=== PATIENT | female | born 1965 | race Caucasian/White ===

== ENCOUNTER → 2017-11-08 | Outpatient (CLI) | payer BC ==
--- NOTE | 2017-11-12 09:54 | MM ---
Reason for exam: screening (asymptomatic). Last mammogram was performed 1 year and 5 months ago. History: Patient had first child at age 33. Family history of breast cancer in aunt. Physical Findings: A clinical breast exam by your physician is recommended on an annual basis and results should be correlated with mammographic findings. MG Screening Mammo w CAD Bilateral CC and MLO view(s) were taken. Prior study comparison: June 21, 2016, bilateral MG screening mammo w CAD. The breast tissue is heterogeneously dense. This may lower the sensitivity of mammography. No significant changes when compared with prior studies. ASSESSMENT: Negative, BI-RAD 1 RECOMMENDATION: Routine screening mammogram of both breasts in 1 year.
== END | disposition home or self-care (01) ==
LOC: RADMAMWWP 12:46
PROVIDERS: ATTEND Obstetrics & Gynecology
DX: Z12.31 Encounter for screening mammogram for malignant neoplasm of breast (principal)
CPT/HCPCS: 77067

== ENCOUNTER → 2019-04-17 | Outpatient (CLI) | payer BC ==
--- NOTE | 2019-04-17 16:13 | US ---
EXAMINATION TYPE: US pelvic complete DATE OF EXAM: 04/17/2019 COMPARISON: NONE CLINICAL HISTORY: N92.0 Excessive and frequent menstruation. Heavy periods. TECHNIQUE: Transabdominal (TA). Transabdominal sonographic images of the pelvis were acquired. EXAM MEASUREMENTS: Uterus: 10.5 x 5.2 x 6.8 cm Endometrial Stripe: Not well visualized. Right Ovary: 2.1 x 1.2 x 1.1 cm Left Ovary: Not seen due to bowel gas. 1. Uterus: Anteverted Heterogenous fibroid uterus with the largest fibroid measuring 5.6 x 5.0 x 5 .5 cm and other smaller fibroids suspected. This fibroid appears intramural within the posterior myom etrium. 2. Endometrium: Not will visualized. 3. Right Ovary: wnl 4. Left Ovary: Obscured by bowel gas. 5. Bilateral Adnexa: wnl 6. Posterior cul-de-sac: wnl IMPRESSION: Enlarged fibroid uterus with the largest fibroid discretely seen measuring 5.6 cm. Smalle r uterine leiomyomas are suspected however not well-visualized. Left ovary and endometrium are obscur ed.
== END | disposition home or self-care (01) ==
LOC: RADUSWWP 15:25
PROVIDERS: ATTEND Family Medicine
DX: D25.9 Leiomyoma of uterus, unspecified (principal)
CPT/HCPCS: 76856

== ENCOUNTER → 2019-07-06 | Outpatient (CLI) | payer BC ==
--- NOTE | 2019-07-07 08:01 | US ---
EXAMINATION TYPE: US transvaginal DATE OF EXAM: 07/06/2019 COMPARISON: US dated 04/17/2019 CLINICAL HISTORY: D25.9 Leiomyoma of uterus, unspecified. Uterine fibroids. 2 C-Sections. . TECHNIQUE: Transvaginal (TV). Date of LMP: 06/26/2019 EXAM MEASUREMENTS: Uterus: 10.9 x 7.8 x 6.6 cm Endometrial Stripe: not clearly seen Right Ovary: 3.1 x 1.9 x 1.4 cm Left Ovary: 3.1 x 2.9 x 1.9 cm 1. Uterus: Anteverted. Measures upper limits of normal. Appears heterogeneous. Multiple hypoechoic indistinct areas seen. Largest hypoechoic area seen posteriorly measures: 5.3 x 5.6 x 5.2 cm. Anechoic areas seen in cervix. Largest measures: 0.5 x 0.5 x 0.4 cm. Fluid-appearing anechoic area se en in cervix measurin.9 x 0.5 x 0.5 cm. 2. Endometrium: not clearly seen 3. Right Ovary: Anechoic area seen measurin.1 x 1.0 x 0.7 cm. 4. Left Ovary: Mixed area seen measurin.7 x 1.8 x 1.5 cm. Mixed area with hyperechoic components seen measurin.3 x 1.5 x 1.2 cm. 5. Bilateral Adnexa: appear wnl 6. Posterior cul-de-sac: appears wnl IMPRESSION: 1. The uterus is enlarged with multiple probable leiomyomas. The largest appears stable in size from 04/17/2019 measuring up to 5.6 cm, however these markedly obscure the endometrium and endometrial thic kness cannot be measured. Pelvic MRI could be utilized to further assess the endometrium. 2. Multiple complex left ovarian lesion, likely hemorrhagic follicles versus endometrioma on the left .
== END | disposition home or self-care (01) ==
LOC: RADUSWWP 16:50
PROVIDERS: ATTEND Obstetrics & Gynecology
DX: D25.9 Leiomyoma of uterus, unspecified (principal); N85.2 Hypertrophy of uterus; N83.9 Noninflammatory disorder of ovary, fallopian tube and broad ligament, unspecified
CPT/HCPCS: 76830

== ENCOUNTER → 2019-07-24 | Outpatient (CLI) | payer BC ==
--- NOTE | 2019-07-27 14:00 | MM ---
Reason for exam: screening (asymptomatic). Last mammogram was performed 1 year and 8 months ago. History: Patient had first child at age 33. Family history of breast cancer in aunt. Physical Findings: A clinical breast exam by your physician is recommended on an annual basis and results should be correlated with mammographic findings. MG Screening Mammo w CAD Bilateral CC and MLO view(s) were taken. Prior study comparison: November 08, 2017, bilateral MG screening mammo w CAD. June 21, 2016, bilateral MG screening mammo w CAD. The breast tissue is extremely dense which could obscure a lesion on mammography. No significant changes when compared with prior studies. ASSESSMENT: Negative, BI-RAD 1 RECOMMENDATION: Routine screening mammogram of both breasts in 1 year.
== END | disposition home or self-care (01) ==
LOC: RADMAMWWP 15:27
PROVIDERS: ATTEND Obstetrics & Gynecology
DX: Z12.31 Encounter for screening mammogram for malignant neoplasm of breast (principal)
CPT/HCPCS: 77067

== ENCOUNTER → 2019-07-29 | Outpatient (CLI) | payer BC ==
[2019-07-29 12:23] LABS: Basophils # (A) 0.1 k/uL (0-0.2); Basophils % (A) 1 %; Eosinophils # (A) 0.2 k/uL (0-0.7); Eosinophils % (A) 2 %; HGB 14.3 gm/dL (11.4-16.0); Lymphocytes # (A) 2.7 k/uL (1.0-4.8); Lymphocytes % (A) 32 %; MCH 30.5 pg (25.0-35.0); MCHC 31.8 g/dL (31.0-37.0); Mean Platelet Volume 7.7; Monocytes # (A) 0.5 k/uL (0-1.0); Monocytes % (A) 6 %; Neutrophils # (A) 4.9 k/uL (1.3-7.7); Neutrophils % (A) 57 %; Platelet Count 302 k/uL (150-450); RBC 4.69 m/uL (3.80-5.40); RDW 13.6 % (11.5-15.5); WBC 8.7 k/uL (3.8-10.6)
== END | disposition home or self-care (01) ==
LOC: LABPAT 10:41
PROVIDERS: ATTEND Obstetrics & Gynecology
DX: Z01.818 Encounter for other preprocedural examination (principal); Z01.812 Encounter for preprocedural laboratory examination
CPT/HCPCS: 36415; 85025; 93005

== ENCOUNTER 2019-08-06 06:29 | Day surgery (SDC) | payer BC ==
[2019-08-04 10:44] VITALS: BMI 22.3
--- NOTE | 2019-08-05 07:38 | P.HPOB ---
History of Present Illness H&P Date: 08/05/19 Chief Complaint: Menorrhagia, uterine fibroid This patient is a pleasant 54-year-old 3 para 2 female who presented to my office with long-standing menorrhagia. Patient's having regular menstrual cycles but they're very heavy and long. Patient has a history of a known uterine fibroid is approximately 5.5 cm. Patient had a normal endometrial biopsy and hormone levels that are indicative of pre-menopause levels. Patient I discussed options for her menorrhagia including expectant management, trial of endometrial ablation, or definitive surgery. Patient is requesting a trial of endometrial ablation at this time. Review of Systems Genitourinary: Reports as per HPI, Reports menorrhagia Menstruation: Reports menses 1-7 days, Reports period heavy Past Medical History Past Medical History: GERD/Reflux History of Any Multi-Drug Resistant Organisms: None Reported Past Surgical History: Section Additional Past Surgical History / Comment(s): Section X2, Colonospy, EGD. Past Anesthesia/Blood Transfusion Reactions: No Reported Reaction, Family History of Problems w/ Anesthesia Additional Past Anesthesia/Blood Transfusion Reaction / Comment(s): Mom PONV. "Sister had problem with Anesthesia about 6 yrs ago but can't remember what, but know it wasn't a fever." Past Psychological History: No Psychological Hx Reported Smoking Status: Current every day smoker Past Alcohol Use History: Occasional Additional Past Alcohol Use History / Comment(s): Has been smoking for 34 yrs, 1 PPD. Past Drug Use History: None Reported - Past Family History Mother Family Medical History: Cancer Additional Family Medical History / Comment(s): Bladder cancer, cancerous tumors removed from urethra. Medications and Allergies Home Medications Medication Instructions Recorded Confirmed Type Famotidine 40 mg PO HS 08/04/19 08/04/19 History Metoclopramide [Reglan] 10 mg PO 1700 08/04/19 08/04/19 History Metoclopramide [Reglan] 10 mg PO HS 08/04/19 08/04/19 History Allergies Allergy/AdvReac Type Severity Reaction Status Date / Time No Known Allergies Allergy Verified 08/04/19 10:45 Exam - OBG Physical Exam Abdomen: bowel sounds normal, no diffuse tenderness, no bruit present, no guarding noted, no hepatomegaly, no splenomegaly, no mass Vulva: both: normal Vagina: normal moisture, no discharge Cervix: no lesion, no discharge Uterus: enlarged (Uterus is approximately 8-10 weeks size.) Adnexa: both: normal Results Endometrial biopsy on May 18 was normal. Patient had a transvaginal ultrasound last month that showed the uterus to contain multiple fibroids the largest was 5.5 cm. Assessment and Plan Assessment: This is a pleasant 54-year-old 3 para 2 female with long-standing menorrhagia and known uterine fibroids. Patient wishes to proceed with a trial of endometrial ablation for treatment. Plan is hysteroscopy, dilation and curettage, and NovaSure endometrial ablation. Karin understands that an endometrial ablation may be less effective or may not even be able to be done due to the uterine fibroids. She does understand the risks of the surgery including risks of infection, bleeding, possible uterine perforation, and/or thermal injury. All the patient's questions are answered and a written consent is obtained. (1) Menorrhagia with regular cycle Status: Acute Code(s): N92.0 - EXCESSIVE AND FREQUENT MENSTRUATION WITH REGULAR CYCLE SNOMED Code(s): 498902673 (2) Uterine fibroid Status: Acute Code(s): D25.9 - LEIOMYOMA OF UTERUS, UNSPECIFIED SNOMED Code(s): 59196859
[~2019-08-06 06:29] MED LIST: LACTATED RINGERS 1,000 ML IV SCH; Pre Op ABX Message 1 EACH MISC MISCELLANE ONE
[2019-08-06] MEDS ORDERED: ONDANSETRON 4 MG/2 ML VIAL IVP ONE (07:04)
[2019-08-06] MEDS ORDERED: LIDOCAINE 1% 20 ML VIAL (10MG/ML) FOR IV START INTRADERMA ONE (07:04)
[2019-08-06] MEDS ORDERED: DEXAMETHASONE SOD PHOSPHATE 10 MG/ML 1 ML VIAL IV ONE (07:05)
[2019-08-06] MEDS ORDERED: PROPOFOL 10 MG/ML 20 ML VIAL IV ONE (07:22)
[2019-08-06] MEDS ORDERED: MIDAZOLAM 2 MG/2 ML VIAL ONE (07:22)
[2019-08-06] MEDS ORDERED: fentaNYL (PF) 50 MCG/ML 2 ML AMP ONE (07:22)
[2019-08-06] MEDS ORDERED: LIDOCAINE 1% INJ 10MG/ML (20 ML MDV) ONE (07:22)
[2019-08-06 08:13] VITALS: TEMP 98.2
[2019-08-06] MEDS ORDERED: KETOROLAC 30 MG/ML 1 ML VIAL IVP ONE (08:13)
--- NOTE | 2019-08-06 08:13 | P.OP ---
Date of Procedure: 08/06/19 Preoperative Diagnosis: Menorrhagia and uterine fibroids Postoperative Diagnosis: Same Procedure(s) Performed: #1: Hysteroscopy. #2: Dilation and curettage. #3: NovaSure endometrial ablation Anesthesia: MAC Surgeon: Taras Pimentel Estimated Blood Loss (ml): 15 IV fluids (ml): 700 Urine output (ml): 50 Pathology: other (Uterine curettings) Condition: stable Disposition: PACU Indications for Procedure: Please see dictated H&P for intimate details of this patient's admission. Brief summary is a pleasant 54-year-old multiparous patient has had long-standing menorrhagia and known uterine fibroids who presents for hysteroscopy D&C and trial of NovaSure endometrial ablation. Patient understands this surgery and risks including risks of infection, bleeding, possible uterine perforation, and/or thermal injury. She also understands that the efficacy of this procedure may be lower due to the uterine fibroids. All the patient's questions are answered written consent is obtained. Operative Findings: This patient had a normal-appearing uterine cavity with the exception of impingement posteriorly of a fibroid. There were no endometrial fibroids or polyps. Description of Procedure: This patient is taken to the operating room where she is laid in the supine position. She subsequently undergoes general mask anesthesia without incident. With an adequate level of anesthesia she's placed in dorsal lithotomy position. She has a vaginal perineal prep and drape. Examination under anesthesia shows a 10 week size uterus that appears mobile. I placed a weighted speculum posterior vagina. Bladder is drained for 50 mL of clear urine. I then grabbed the anterior lip of the cervix with an Allis clamp. I gently sound the uterus at this time to 8.5 cm. With this done gentle dilation is done to allow the hysteroscope easily and the uterine cavity. Hysteroscopy is performed and appears to be a fibroid in the posterior uterine wall pushing on the endometrium but otherwise endometrial cavity appears clear. With this done the hysteroscope was removed. With this done, I then dilate the cervix gently more to allow a small curette into the uterine cavity. A gentle but thorough 4 quadrant curettage is done. This point the NovaSure device is opened and appears to be intact. It is set at a length of 6.0 cm and seated in place and opens up to a width of 4.7 cm. After passing the cavity integrity test is then enabled at 155 [address] settings for 33 seconds. NovaSure device is then removed. With this done hysteroscopy is performed again and the uterine cavity does appear to be ablated. This done the procedure is ended. The Allis clamp and weighted speculum removed. All counts are correct 3. There are no complications. Patient is awakened from anesthesia and taken recovery room in satisfactory condition.
[2019-08-06 09:20] VITALS: BP 129/75; PULSE 74; RESP 16
== END 2019-08-06 09:34 | disposition home or self-care (01) ==
LOC: OR 06:29
PROVIDERS: ATTEND Obstetrics & Gynecology
DX: N92.0 Excessive and frequent menstruation with regular cycle (principal); D25.9 Leiomyoma of uterus, unspecified; F17.210 Nicotine dependence, cigarettes, uncomplicated; K21.9 Gastro-esophageal reflux disease without esophagitis; Z79.1 Long term (current) use of non-steroidal anti-inflammatories (NSAID); Z79.899 Other long term (current) drug therapy; Z80.52 Family history of malignant neoplasm of bladder
CPT/HCPCS: 81025; 88305; 58563; J2250; J1100; J2405; J2001; J3010; J1885; J2704

== ENCOUNTER → 2021-03-06 | Outpatient (CLI) | payer BC ==
--- NOTE | 2021-03-08 13:52 | MM ---
Reason for exam: screening (asymptomatic). Last mammogram was performed 1 year and 7 months ago. History: Patient had first child at age 33. Family history of breast cancer in aunt. Physical Findings: A clinical breast exam by your physician is recommended on an annual basis and results should be correlated with mammographic findings. MG Screening Mammo w CAD Bilateral CC and MLO view(s) were taken. Prior study comparison: July 24, 2019, bilateral MG screening mammo w CAD. November 08, 2017, bilateral MG screening mammo w CAD. The breast tissue is heterogeneously dense. This may lower the sensitivity of mammography. ASSESSMENT: Negative, BI-RAD 1 RECOMMENDATION: Routine screening mammogram of both breasts in 1 year.
== END | disposition home or self-care (01) ==
LOC: RADMAMWWP 13:21
PROVIDERS: ATTEND Family Medicine
DX: Z12.31 Encounter for screening mammogram for malignant neoplasm of breast (principal); Z80.3 Family history of malignant neoplasm of breast
CPT/HCPCS: 77067

== ENCOUNTER → 2023-04-23 | Outpatient (CLI) | payer BC ==
--- NOTE | 2023-04-23 18:41 | BD ---
EXAMINATION TYPE: Axial Bone Density DATE OF EXAM: 04/23/2023 CLINICAL HISTORY: 58 years old Female. ICD-10 CODE: N95.1 MENOPAUSE Height: 61.2" Weight: 127.4 FRAX RISK QUESTIONS: Alcohol (3 or more units per day): No Family History (Parent hip fracture): No Glucocorticoids (More than 3mos): No (Ex: prednisone, prednisolone, methylprednisolone, dexamethasone, and hydrocortisone). History of Fracture in Adulthood: No Secondary Osteoporosis: 1. Type 1 Diabetes: No 2. Hyperthyroidism: No 3. Menopause before 45: No 4. Malnutrition: No 5. Chronic liver disease: No Rheumatoid Arthritis: No Current Tobacco Use: Yes RISK FACTORS HISTORY OF: Hip Fracture (Right/Left): No Spine Fracture: No History of Wrist Fracture: No Surgery to Spine/Hip(right/left)/Wrist (right/left): No Family History of Osteoporosis: No Active: Yes Diet low in dairy products/other sources of calcium: No Postmenopausal woman: Yes Lost more than 2 inches in height since high school: No Frequent falls: No Poor Health: No Hyperparathyroidism: No Adrenal Insufficiency: No MEDICATIONS: Prednisone or other steroids: No Thyroid Medications: No Osteoporosis Medications: No Additional Medications: Acid reflux medication 10 years, vitamin D, Multivitamin Additional History: None EXAM MEASUREMENTS: Bone mineral densitometry was performed using the [employer] System. Bone mineral density as measured about the Lumbar spine is: ----- L1-L4(G/cm2): 1.229 T Score Values are as follows: ----- L1: -0.1 ----- L2: 0.2 ----- L3: 0.2 ----- L4: 1.0 ----- L1-L4: 0.4 Z Score Values are as follows: ----- L1: 1.1 ----- L2: 1.4 ----- L3: 1.4 ----- L4: 2.2 ----- L1-L4: 1.6 Baseline @[facility] Bone mineral density about the R hip (g/cm2): 0.989 Bone mineral density about the L hip (g/cm2): 0.981 T Score values are as follows: -----R Neck: -0.9 -----L Neck: -1.3 -----R Total: -0.1 -----L Total: -0.2 Z Score values are as follows: -----R Neck: 0.3 -----L Neck: 0.0 -----R Total: 0.8 -----L Total: 0.7 Baseline @[facility] FRAX%s: The graph provided illustrates a 6.7% chance for a major osteoporotic fx and a 0.8% chance fo r the hips probability for fx in 10 years time. IMPRESSION: Osteopenia (T Score between -2.5 and -1). There is slightly increased risk of fracture and the patient may be considered for treatment. Re-Screen 2-5 years. NOTE: T-SCORE=SD OF THE YOUNG ADULT MEAN.
--- NOTE | 2023-04-24 07:48 | MM ---
Reason for Exam: Screening (asymptomatic). Last mammogram was performed 2 year(s) and 2 month(s) ago. Patient History: Menarche at age 13. First Full-Term at age 33. Late child-bearing (after 30). Postmenopausal. Maternal aunt had breast cancer. Risk Values: Beata 5 year model risk: 1.8%. NCI Lifetime model risk: 10.7%. Prior Study Comparison: 11/08/2017 Bilateral Screening Mammogram, [facility]. 07/24/2019 Bilateral Screening Mammogram, [facility]. 03/06/2021 Bilateral Screening Mammogram, [facility]. Tissue Density: The breast tissue is heterogeneously dense. This may lower the sensitivity of mammography. Findings: Analyzed By CAD. There is no suspicious group of microcalcifications or new suspicious mass in either breast. Overall Assessment: Negative, BI-RAD 1 Management: Screening Mammogram of both breasts in 1 year. A clinical breast exam by your physician is recommended on an annual basis and results should be correlated with mammographic findings. Note on Beata scores and lifetime risk: 1. A Beata score greater than 3% is considered moderate risk. If this is the case, consider specialist referral to assess eligibility for a risk reducing agent. If overall lifetime risk for the development of breast cancer is 20% or higher, the patient may qualify for future screening with alternating mammogram and breast MRI. Electronically signed and approved by: River Gonzalez D.O.
== END | disposition home or self-care (01) ==
LOC: RADMAMWWP 14:46
PROVIDERS: ATTEND Obstetrics & Gynecology
DX: Z12.31 Encounter for screening mammogram for malignant neoplasm of breast (principal); M85.89 Other specified disorders of bone density and structure, multiple sites; Z78.0 Asymptomatic menopausal state; Z80.3 Family history of malignant neoplasm of breast
CPT/HCPCS: 77067; 77080